=== PATIENT | female | born 1950 | race Hispanic/Latino ===

== ENCOUNTER 2017-07-17 17:04 | Emergency (ER) | payer OTHER, SELFPAY ==
[2017-07-17] MEDS ORDERED: MECLIZINE HCL 25 MG TABLET ONE (17:31)
[2017-07-17] MEDS ORDERED: ONDANSETRON HCL MDV 20ML 2 MG/ML VIAL ONE (17:32)
[2017-07-17 17:40] LABS: BASOPHILS % (AUTO) 0.6 % (0.0-5.0); EOSINOPHILS % (AUTO) 0.3 % (0.0-8.0); HEMATOCRIT 41.1 % (36-48); LYMPHOCYTES % (AUTO) 11.1 % (21.0-51.0); MEAN CORPUSCULAR HEMOGLOBIN 25.9 pg (27.0-33.0); MEAN CORPUSCULAR HGB CONC 32.9 g/dL (32.0-36.0); MEAN CORPUSCULAR VOLUME 78.9 fL (79-99); MONOCYTES % (AUTO) 2.1 % (3.0-13.0); NEUTROPHILS % (AUTO) 85.9 % (40.0-77.0); PLATELET COUNT (AUTO) 256 K/uL (130-400); RED CELL DISTRIBUTION WIDTH 13.3 % (11.0-15.5); WHITE BLOOD COUNT (AUTO) 13.1 K/uL (4.8-10.8)
[2017-07-17 17:41] LABS: APPEARANCE,URINE CLOUDY (CLEAR); BILIRUBIN,URINE NEGATIVE (NEGATIVE); COLOR,URINE YELLOW (YELLOW); GLUCOSE, URINE (UA) NEGATIVE (NEGATIVE); KETONES,URINE 15 mg/dL (NEGATIVE); LEUKOCYTE ESTERASE ,URINE NEGATIVE (NEGATIVE); NITRATE,URINE NEGATIVE (NEGATIVE); OCCULT BLOOD,URINE NEGATIVE (NEGATIVE); PROTEIN,URINE TRACE (NEGATIVE); UROBILINOGEN,URINE 0.2 mg/dL (0.2-1.0)
[2017-07-17 17:53] LABS: CREATININE 0.6 mg/dL (0.5-1.5); INR 0.98 (0.85-1.15); PARTIAL THROMBOPLASTIN TIME 23.3 SEC (26.3-35.5); POTASSIUM 3.4 mmol/L (3.5-5.1); PROTHROMBIN TIME 10.3 SEC (9.6-11.6)
[2017-07-17 17:59] LABS: BILIRUBIN,TOTAL 0.3 mg/dL (0.2-1.0)
[2017-07-17 18:06] LABS: CREATINE KINASE MB 2.1 ng/mL (0.5-3.6)
[2017-07-17 18:07] LABS: BACTERIA,URINE Few /HPF (None Seen); RBC,URINE 0-1 /HPF (0-1); WBC,URINE 0-1 /HPF (0-1)
[2017-07-17 18:08] LABS: AMORPHOUS SEDIMENT,UR Moderate /LPF (None Seen); SQUAMOUS EPITHELIAL CELL,UR Few /HPF (0-2)
== END 2017-07-17 20:11 | disposition home or self-care (01) ==
LOC: EDH 17:04
DX: H81.399 Other peripheral vertigo, unspecified ear (principal); R03.0 Elevated blood-pressure reading, without diagnosis of hypertension
CPT/HCPCS: 36415; 70450; 71045; 80053; 81001; 82150; 82550; 82553; 83690; 84484; 85025; 85610; 85730; 93005; 96374

== ENCOUNTER 2018-04-14 11:00 | Emergency (ER) | payer OTHER, SELFPAY ==
[2018-04-14] MEDS ORDERED: HYDROCODONE/ACETAMINOPHEN 5/325 MG TAB ONE (11:16)
[2018-04-14] MEDS ORDERED: SILVER SULFADIAZINE CREAM 50 GM TP ONE (11:20)
[2018-04-14] MEDS ORDERED: TETANUS/DIPHTHERIA TOXOID [ADULT] 0.5 ML VIAL IM ONE (11:25)
== END 2018-04-14 12:16 | disposition home or self-care (01) ==
LOC: EDH 11:00
DX: T23.242A Burn of second degree of multiple left fingers (nail), including thumb, initial encounter (principal); T31.0 Burns involving less than 10% of body surface; X10.2XXA Contact with fats and cooking oils, initial encounter; Y93.G3 Activity, cooking and baking; Y92.89 Other specified places as the place of occurrence of the external cause; Y99.8 Other external cause status
CPT/HCPCS: 16000; 90471; 90714

== ENCOUNTER 2024-03-22 19:00 | Emergency (ER) | payer MEDICARE, OTHER ==
[~2024-03-22] VITALS: Ht 157.5 cm; Wt 74.8 kg
--- NOTE | 2024-03-22 19:10 | NUR ---
CALLED JORDYN CORONADO OF PT
--- NOTE | 2024-03-22 19:13 | ERN ---
ED Note History of Present Illness Stated Complaint: N/V, GBW, EPIGASTRIC PAIN Chief Complaint: Multiple Complaints Time Seen by MD: 19:03 Dictation: A 73-year-old female she comes in personal abdominal pain some cramping some nausea or vomiting. Some generalized weakness Allergies: Coded Allergies: No Known Allergies (Unverified Allergy, Unknown, 03/22/24) Home Meds Active Scripts Ondansetron HCl (Zofran) 4 Mg/2 Ml Inj, 4 MG IM TID for vomiting for 5 Days, #15 ML Prov:WILLARD EARLY MD 03/22/24 Past Medical History Past Medical History: Dementia, High Cholesterol, Other Additional Past Medical Hx: POOR HISTORIAN Surgical History: Review of System Dictation Constitutional: Negative for fever,chills, and weight loss Eyes: Negative for injury, pain,redness, and discharge ENT: Negative for injury,pain or swelling Cardiovascular: Negative for chest pain, palpitations, and edema Respiratory: Negative for shortness of breath, cough, and wheezing, Abdomen/GI: Abdominal pain nausea vomiting Back: Negative for injury and pain : Negative for injury, bleeding and discharge MS/Extremity: Negative for injury and deformity Skin: Negative for rash, and discoloration Neuro: Negative for headache, weakness, numbness, tingling, and seizure Psych: Negative for suicide ideation, homicidal ideation, and hallucinations Initial Vital Sign VS Vital Signs Date Time Temp Pulse Resp B/P (MAP) Pulse Ox O2 Delivery O2 Flow Rate FiO2 03/22/24 19:02 96.8 74 16 158/69 98 Room Air 03/22/24 22:42 0 21 Physical Exam Dictation General: awake, alert, NAD Head/Face: Normocephalic, atraumatic Eyes: PERRL, EOMI, vision at baseline ENT: oral cavity clear, TMs clear, no signs of infection Neck: Trachea midline, supple, no nuchal rigidity Cardiovascular: RRR, normal S1/S2, No MRGs, no JVD Respiratory: CTAB, no respiratory distress, No rales or wheezes Abdomen: Patient has some epigastric abdominal pain. Skin: Warm, dry, normal turgor, no rash MS/Extremity: Pulses equal, no cyanosis, neurovascular intact, FROM Neuro: COAx4, GCS 15, strength 5/5, CN 2-12 intact, normal cerebellar exam, normal gait, Psych: Normal behavior, mood, and affect normal Results (Laboratory/Radiology) Laboratory/Radiology Laboratory Tests Test 03/22/24 19:54 White Blood Count 12.6 K/uL (4.8-10.8) H Red Blood Count 5.21 MIL/uL (4.00-5.50) Hemoglobin 13.8 g/dL (12.0-16.0) Hematocrit 42.8 % (36-48) Mean Corpuscular Volume 82.1 fL (79-99) Mean Corpuscular Hemoglobin 26.5 pg (27.0-33.0) L Mean Corpuscular Hemoglobin Concent 32.2 g/dL (32.0-36.0) Red Cell Distribution Width 13.2 % (11.0-15.5) Platelet Count 227 K/uL (130-400) Mean Platelet Volume 11.4 fL (7.5-10.5) H Immature Granulocyte % (Auto) 0.4 % (0-1) Neutrophils (%) (Auto) 80.0 % (40.0-77.0) H Lymphocytes (%) (Auto) 15.1 % (21.0-51.0) L Monocytes (%) (Auto) 3.4 % (3.0-13.0) Eosinophils (%) (Auto) 0.7 % (0.0-8.0) Basophils (%) (Auto) 0.4 % (0.0-5.0) Neutrophils # (Auto) 10.1 K/uL (1.8-7.7) H Lymphocytes # (Auto) 1.9 K/uL (1.0-4.8) Monocytes # (Auto) 0.4 K/uL (0.1-1.0) Eosinophils # (Auto) 0.09 K/uL (0.00-0.70) Basophils # (Auto) 0.05 K/uL (0.00-0.20) Absolute Immature Granulocyte (auto 0.05 K/uL (0-1) Nucleated Red Blood Cells 0.0 % (0.0-0.19) Sodium Level 139 mmol/L (136-145) Potassium Level 3.3 mmol/L (3.5-5.1) L Chloride Level 100 mmol/L (101-111) L Carbon Dioxide Level 29 mmol/L (21-32) Blood Urea Nitrogen 17 mg/dL (7-18) Creatinine 0.8 mg/dL (0.5-1.0) Glomerular Filtration Rate Calc 79 mL/min (>90) Random Glucose 195 mg/dL (70-105) H Total Calcium 9.2 mg/dL (8.5-10.1) Total Bilirubin 0.4 mg/dL (0.2-1.0) Direct Bilirubin 0.1 mg/dL (0.0-0.3) Aspartate Amino Transf (AST/SGOT) 17 U/L (10-37) Alanine Aminotransferase (ALT/SGPT) 21 U/L (12-78) Alkaline Phosphatase 146 U/L (50-136) H Troponin I High Sensitivity 5 ng/L (4-50) Total Protein 8.0 g/dL (6.0-8.3) Albumin 3.8 g/dL (3.5-5.0) Lipase 27 U/L (16-77) ED Course ED Course Orders Procedure Category Date Status Time Cbc With Differential LAB 03/22/24 Complete 19:02 Basic Metabolic Panel LAB 03/22/24 Complete 19:02 Urinalysis Profile LAB 03/22/24 Logged 19:02 Troponin I High LAB 03/22/24 Complete Sensitivity 19:02 Chest 1vw RAD 03/22/24 Resulted 19:02 12 Lead Ekg Tracing- EKG 03/22/24 Logged Technical 19:02 Lipase LAB 03/22/24 Complete 19:02 Hepatic Function Panel LAB 03/22/24 Complete 19:02 Morphine 4mg Syg PHA 03/22/24 Complete (Morphine 4mg Syg) 19:30 Ondansetron 4mg Inj PHA 03/22/24 Complete (Zofran 4mg Inj) 19:30 Ct Abdomen/Pelvis W/O CT 03/22/24 Resulted Contrast 19:05 Current Medications Medications (Trade) Dose Ordered Sig/Javier Route PRN Reason Start Time Stop Time Status Last Admin Dose Admin Morphine Sulfate (morPHINE 4MG SYG) 4 mg ONCE ONCE IVP 03/22/24 19:30 03/22/24 19:31 DC Ondansetron HCl (zoFRAN 4MG INJ) 4 mg ONCE ONCE IVP 03/22/24 19:30 03/22/24 19:31 DC 03/22/24 22:20 Vital Signs Date Time Temp Pulse Resp B/P (MAP) Pulse Ox O2 Delivery O2 Flow Rate FiO2 03/22/24 22:42 97.3 67 18 136/67 96 Room Air* 0 21 03/22/24 19:02 96.8 74 16 158/69 98 Room Air Medical Decision Making MDM Labs test and continue to reassess. Could be gastritis biliary disease atypical ACS gastroenteritis takes her SBO did note the mild white count. And the mild decrease in potassium. Consistent with gastroenteritis. And stress response. I was able to help the patient and family a 50 p.m.. Again I did further exam is and tests. NIH is 0 cerebellar testing within normal limits. I told her is likely consistent with gastroenteritis. She says she is stooling normally every day. They said how much longer for the medications to be given. I said the next hour to hopefully. Said it candidate any go and get script and take it often lower and arousable. And I said yes if they do eventually want to go I said that I can give him a script to do the pharmacy the [facility] in [place]. By said that is just wait some longer. For the medications see if they work. Otherwise to admitted to hospital intractable nausea vomiting. With the patient's son had approached me why I was taking the patient from triage. And evaluated the patient. He asked how long it would take a said it is difficult is difficult to tell given that the facility is on diversion. And staffing as backup shortness cough. He said if he can does have the script. But again I am not going to force him or his family against as well and we have from the medications and additional studies evaluations. I said we can do the medications. No other questions complaints concerns will respect their time decision-making capacity. DX & DISP Disposition: Discharge Departure Impression: Primary Impression: Vomiting Condition: Stable Scripts Ondansetron HCl (Zofran) 4 Mg/2 Ml Inj 4 MG IM TID for vomiting for 5 Days, #15 ML Prov: WILLARD EARLY MD 03/22/24 Referrals: ROBERTA MAYERS MD (PCP) WILLARD EARLY MD Mar 22, 2024 19:13
[2024-03-22] MEDS: morPHINE 4 MG SYG IVP ONE (19:30)
--- NOTE | 2024-03-22 19:59 | HMCIMG ---
CT ABDOMEN/PELVIS W/O CONTRAST HISTORY: Abdominal pain COMPARISON: None TECHNIQUE: Multiple sequential axial images of the abdomen and pelvis were obtained from the dome of the diaphragm through symphysis pubis. Patient was not given contrast through intravenous route. Oral contrast was not given. FINDINGS: No pleural effusion is seen bilaterally. There is no evidence of parenchymal disease or pulmonary nodule of the visualized lower lungs. Degenerative changes of the thoracolumbar spine are present. The heart is not enlarged. Liver is enlarged with fatty changes measuring 21 cm. Small hiatal hernia is seen. There is diverticulosis. Subcentimeter right hepatic cyst is seen. The liver, spleen, adrenal glands and pancreas are unremarkable. There is no evidence of hydronephrosis bilaterally. No evidence of renal stone is seen. Fecal material is seen in the colon. There are normal size retroperitoneal and mesenteric lymph nodes. No ascites is seen. Atherosclerotic changes are present. No CT evidence of acute appendicitis is seen. Pelvic sidewalls are symmetric bilaterally. Bladder is well distended without wall thickening. IMPRESSION: 1. Motion artifacts degrading the image quality. Diverticulosis. Fecal material in the colon. CT was performed with one or more following dose reduction techniques: automated exposure control, adjustment of the mA and kv according to patient's size, or use of a iterative reconstruction technique.
[2024-03-22 20:00] LABS: BASOPHILS # (AUTO) 0.05 K/uL (0.00-0.20); BASOPHILS % (AUTO) 0.4 % (0.0-5.0); EOSINOPHILS # (AUTO) 0.09 K/uL (0.00-0.70); EOSINOPHILS % (AUTO) 0.7 % (0.0-8.0); HEMATOCRIT 42.8 % (36-48); IMMATURE GRANULOCYTE ABSOLUTE 0.05 K/uL (0-1); LYMPHOCYTES # (AUTO) 1.9 K/uL (1.0-4.8); LYMPHOCYTES % (AUTO) 15.1 % (21.0-51.0); MEAN CORPUSCULAR HEMOGLOBIN 26.5 pg (27.0-33.0); MEAN CORPUSCULAR HGB CONC 32.2 g/dL (32.0-36.0); MEAN CORPUSCULAR VOLUME 82.1 fL (79-99); MONOCYTES # (AUTO) 0.4 K/uL (0.1-1.0); MONOCYTES % (AUTO) 3.4 % (3.0-13.0); NEUTROPHILS # (AUTO) 10.1 K/uL (1.8-7.7); PLATELET COUNT (AUTO) 227 K/uL (130-400); RED BLOOD CELL COUNT(AUTO) 5.21 MIL/uL (4.00-5.50); RED CELL DISTRIBUTION WIDTH 13.2 % (11.0-15.5); WHITE BLOOD COUNT (AUTO) 12.6 K/uL (4.8-10.8)
--- NOTE | 2024-03-22 20:07 | HMCIMG ---
CHEST 1VW HISTORY: Epigastric pain COMPARISON: 07/17/2017 FINDINGS: A frontal projection of the chest was obtained. No acute pulmonary infiltrates is seen. The heart is normal in size. Prominent interstitial markings are seen. No evidence of aortic calcification is seen. IMPRESSION: 1. No acute pulmonary infiltrate is seen.
[2024-03-22 20:11] LABS: CREATININE 0.8 mg/dL (0.5-1.0); POTASSIUM 3.3 mmol/L (3.5-5.1)
[2024-03-22 20:21] LABS: ALBUMIN 3.8 g/dL (3.5-5.0); BILIRUBIN,DIRECT 0.1 mg/dL (0.0-0.3); BILIRUBIN,TOTAL 0.4 mg/dL (0.2-1.0)
[2024-03-22] MEDS ORDERED: ONDA22I IM (21:59)
[2024-03-22] MEDS: ondanSETRON 4MG INJ IVP ONE (22:20)
[2024-03-22 22:42] VITALS: BP 136/67; PULSE 67; RESP 18; TEMP 97.3; O2SAT 96
--- NOTE | 2024-03-23 05:22 | EKG ---
[facility] Test Date: 2024-03-22 Test Time: 19:16:56 Pat Name: DAVID CALIXTO Department: ED Room: Gender: F Linemarker: [id number] : [id number] Requested By: WILLARD EARLY Order Number: [id number] Reading MD: Ciara Guadalupe Measurements Intervals [place] Rate: 67 P: 60 NH: 153 QRS: -3 QRSD: 98 T: 14 QT: 455 QTc: 482 Interpretive Statements Sinus rhythm Probable left atrial enlargement Compared to ECG 07/17/2017 17:28:07 Myocardial infarct finding no longer present Electronically Signed On 03-23-2024 18:09:59 [employer]ENT by Ciara Guadalupe Please click the below link to view image of tracing.
== END 2024-03-22 23:07 | disposition home or self-care (01) ==
LOC: EDH 19:00
DX: R11.2 Nausea with vomiting, unspecified (principal); F03.90 Unspecified dementia, unspecified severity, without behavioral disturbance, psychotic disturbance, mood disturbance, and anxiety; E78.00 Pure hypercholesterolemia, unspecified; Z79.899 Other long term (current) drug therapy
CPT/HCPCS: 99285; 74176; 96374; 71045; 80076; 84484; 80048; 83690; 85025; 36415; 93005; J2405; J2270